=== PATIENT | female | born 1960 | race Caucasian/White ===

== ENCOUNTER → 2020-01-31 15:46 | Outpatient (CLI) | payer OTHER, SELFPAY ==
--- NOTE | ~2020-01-31 | MM_ITS ---
EXAMINATION: MM screening jb BI w samy HISTORY: Screening TECHNIQUE: Craniocaudal and mediolateral oblique 3-D tomosynthesis images were obtained and synthetic 2-D images were generated. CAD analysis was submitted and interpreted. COMPARISON: Comparison to multiple prior studies sequentially, with oldest reviewed study dated 04/05. BREAST PARENCHYMAL COMPOSITION: There are scattered areas of fibroglandular density. FINDINGS: There is no evidence of suspicious mass, calcification, or architectural distortion to sugg est malignancy in either breast. There has been no suspicious interval change. IMPRESSION: 1. No mammographic evidence of malignancy. 2. Recommend routine screening mammography in one year. BI-RADS Category 1: Negative Reviewed, dictated and finalized at location A. ONAL CLOTHING LAUNDRY AIDE
== END ==
PROVIDERS: Visit Provider Obstetrics & Gynecology
DX: Z12.31 Encounter for screening mammogram for malignant neoplasm of breast (principal)
CPT/HCPCS: 77063; 77067

== ENCOUNTER 2020-11-18 16:30 | Emergency (ER) | payer OTHER, SELFPAY ==
[2020-11-18 16:46] VITALS: BP 123/71; PULSE 66; RESP 16; TEMP 36.7; O2SAT 97
--- NOTE | 2020-11-18 17:17 | ED.SKABFB ---
HPI - Skin/Abscess/Foreign Bdy General Chief complaint: Wound/Laceration Stated complaint: Laceration on toe Time Seen by Provider: 11/18/20 17:17 Source: patient Mode of arrival: ambulatory Limitations: no limitations History of Present Illness HPI narrative: Liz Huff is a 60 yo female with PMH of high cholesterol comes with a 2 cm lac to top of L great toe. Happened with a blue for vase that dropped and cut her toe, has good movement and color Related Data Home Medications Medication Instructions Recorded Confirmed atorvastatin 11/18/20 Allergies Allergy/AdvReac Type Severity Reaction Status Date / Time chlorzoxazone Allergy Unknown Other Verified 11/18/20 16:57 Review of Systems Review of Systems: CONSTITUTIONAL: Denies fever, chills, sweats. EYES: Denies visual changes, redness, discharge. ENT: Denies rhinorrhea, congestion, sore throat, otalgia. CARDIOVASCULAR: Denies chest pain, palpitations, edema. RESPIRATORY: Denies dyspnea, wheezing, cough GASTROINTESTINAL: Denies abdominal pain, nausea, vomiting, diarrhea. GENITOURINARY: Denies dysuria, hematuria, abnormal discharge SKIN: Denies rash or itching. Cut across the left great toe about 2 cm in length NEUROLOGIC: Denies numbness, or focal weakness. PSYCHIATRIC: Denies anxiety or depression. [facility] Past Medical History Medical History (Updated 11/18/20 @ 17:53 by Felicitas Head CNP) High cholesterol Family History Family History Mother Cerebrovascular accident Other Diabetes mellitus Hypertension Social History Social History Smoking status: Never smoker Alcohol intake: current Comments At time of signature, I agree with nursing past medical, surgical, social and family history. There is no relevant family history pertinent to the presenting complaint. Exam Narrative: GENERAL: This is a well-nourished, well-developed patient, in mild distress. HEAD: normocephalic, atraumatic. EYES: Sclera clear/white. Vision is grossly intact. EARS: External ears normal, auditory canals clear and without drainage, TMs normal without perforation. Hearing grossly intact. NOSE: External nose normal without nasal discharge, nares without redness, no rhinorrhea. THROAT: Mucous membranes moist, posterior pharynx NECK: Neck supple, non-tender CARDIOVASCULAR: Regular rate and rhythm without murmurs, gallops, or rubs. RESPIRATORY: Clear to auscultation. Breath sounds equal bilaterally. No wheezes, rales, or rhonchi. GASTROINTESTINAL: Abdomen soft, non-tender, SKIN: warm, 2 cm superficial lack to left great toe NEURO: awake, alert, and oriented to person, place and time. There were no obvious focal neurologic abnormalities. Steady gait EXTREMITIES: Normal range of motion. BACK: Nontender without deformity Course Vital Signs Vital signs: Vital Signs Temperature 98.1 F 11/18/20 16:46 Pulse Rate 66 11/18/20 16:46 Respiratory Rate 16 11/18/20 16:46 Blood Pressure 123/71 11/18/20 16:46 Pulse Oximetry 97 11/18/20 16:46 Temperature 98.1 F 11/18/20 16:46 Pulse Rate 66 11/18/20 16:46 Respiratory Rate 16 11/18/20 16:46 Blood Pressure 123/71 11/18/20 16:46 Pulse Oximetry 97 11/18/20 16:46 Procedures Laceration Laceration 1: Date: 11/18/20 Time: 17:40 Site: lower extremity Side (If applicable): left Size (cm): 2 Description: linear Depth: simple, single layer Local Anesthetic: lidocaine 1% Amount of anesthesia used (mL): 3 ====== Skin Level ====== Skin layer closed with: vicryl Size (cm): 4-0 Number of sutures: 4 ====== Subcutaneous Layer ====== ====== Muscle Layer ====== ====== Tendon Layer ====== Dressing: Telfa dressing applied with gauze wrap-tolerated well MDM - Skin/Abscess/For
[2020-11-18] MEDS: TETANUS,DIPHTHERIA,AC PERTUSSIS ADULT (0.5 ML) BOOSTRIX IM (18:06)
[2020-11-18] MEDS: LIDOCAINE HCL 1% LOCAL INJ 20 ML VIAL 5 ML INFILTRATE (18:06)
== END 2020-11-18 17:37 | disposition home or self-care (01) ==
PROVIDERS: Emergency Provider Nurse Practitioner
DX: S91.112A Laceration without foreign body of left great toe without damage to nail, initial encounter (principal); W25.XXXA Contact with sharp glass, initial encounter; Z23 Encounter for immunization; E78.00 Pure hypercholesterolemia, unspecified
CPT/HCPCS: 12001; 90471; 90715; 99212; G0463

== ENCOUNTER → 2021-05-07 15:44 | Outpatient (CLI) | payer OTHER, SELFPAY ==
--- NOTE | ~2021-05-07 | MM_ITS ---
EXAMINATION: MM screening [facility] BI w samy HISTORY: Screening mammogram TECHNIQUE: Craniocaudal and mediolateral oblique 3-D tomosynthesis images were obtained and synthetic 2-D images were generated. CAD analysis was submitted and interpreted. COMPARISON: 01/31/2020, 05/13/2018, 04/23/2017 BREAST PARENCHYMAL COMPOSITION: There are scattered areas of fibroglandular density. FINDINGS: There is a chronic asymmetry in the subareolar right breast. There is no suspicious mass, c alcification, or architectural distortion to suggest malignancy in either breast. There has been no s uspicious interval change. IMPRESSION: 1. No mammographic evidence of malignancy. 2. Recommend routine screening mammography in one year. BI-RADS Category 2: Benign finding(s). Reviewed, dictated and finalized at location A.
== END ==
PROVIDERS: Visit Provider Obstetrics & Gynecology
DX: Z12.31 Encounter for screening mammogram for malignant neoplasm of breast (principal)
CPT/HCPCS: 77063; 77067

== ENCOUNTER 2021-09-09 09:43 | Emergency (ER) | payer OTHER, SELFPAY ==
[2021-09-09] VITALS (10 sets, daily range): BP systolic 110–130; BP diastolic 63–73; PULSE 59–68; RESP 15–18; TEMP 36.4; O2SAT 92–97
--- NOTE | ~2021-09-09 | US_ITS ---
US abdomen limited INDICATION: Abdomen pain. PROCEDURE: Realtime right upper abdominal ultrasound. COMPARISON: No prior studies for comparison. FINDINGS: The pancreas is obscured by bowel content. There is a small 2 mm echogenic mass in the walter er, most likely benign hemangioma in the absence of known malignancy. There is normal directional fl ow in the portal vein. There are gallstones and gallbladder sludge. There is gallbladder wall thickening. Common bile duct measures 5 mm. No sonographic Seay's sign. IMPRESSION: 1: Cholelithiasis with gallbladder sludge and gallbladder wall thickening. Consider cholecystitis in the appropriate clinical setting. 2: Small echogenic mass of the liver measuring 2 mm, likely benign hemangioma in the absence of known malignancy. Reviewed, dictated and finalized at location A. IMPRESSION: 1: Cholelithiasis with gallbladder sludge and gallbladder wall thickening. Cons ider cholecystitis in the appropriate clinical setting. 2: Small echogenic mass of the liver measuring 2 mm, likely benign hemangioma i n the absence of known malignancy.
--- NOTE | ~2021-09-09 | XR_ITS ---
EXAMINATION: XR chest 2V DATE: 09/09/2021 11:03 INDICATION: Chest pain. Epigastric abdominal pain. TECHNIQUE: Frontal and lateral views of the chest were obtained. COMPARISON: None. FINDINGS: The chest demonstrates clear lungs without pneumonia, pleural effusion, or pneumothorax. Th e heart size is normal. There are changes of anterior fusion procedure in cervical spine. There are g allstones in the gallbladder. IMPRESSION: 1. Cholelithiasis. Reviewed, dictated and finalized at location A. IMPRESSION: 1. Cholelithiasis.
--- NOTE | 2021-09-09 09:55 | ECG_ITS ---
Measurements Intervals [place] Rate: 65 P: 39 MD: 132 QRS: -15 QRSD: 83 T: 11 QT: 410 QTc: 427 Interpretive Statements SINUS RHYTHM VOLTAGE CRITERIA FOR LVH, CONSIDER NORMAL VARIANT Electronically Signed On 09-09-2021 11:45:27 CDT by Rafael Mckee M.D.
[2021-09-09 10:06] LABS: Basophils Absolute Auto 0.1 K/mm3 (0.0-0.1); Eosinophils Absolute Auto 0.5 K/mm3 (0-0.3); Eosinophils Percent Auto 8.6 % (0-4.4); Hematocrit 44.8 % (37.0-47.0); Hemoglobin 13.8 g/dL (12.0-15.0); Immature Granulocyte Absolute 0.01 K/mm3 (0.00-0.031); Immature Granulocyte Percent A 0.2 % (0-0.5); Lymphocytes Absolute Auto 1.92 K/mm3 (0.9-3.2); Lymphocytes Percent Auto 32.4 % (18.3-44.2); Mean Corpuscular HGB Conc 30.8 g/dl (32-36); Mean Corpuscular Hemoglobin 28.4 pg (26-34); Mean Corpuscular Volume 92.2 fl (80-100); Mean Platelet Volume 10.8 fl (7.4-10.4); Monocytes Absolute Auto 0.6 K/mm3 (0.1-0.6); Monocytes Percent Auto 9.3 % (2.6-8.5); Neutrophils Absolute Auto 2.9 K/mm3 (1.3-6.7); Neutrophils Percent Auto 48.5 % (45.5-73.1); Platelet Count Result 174 k/mm3 (150-375); Red Blood Count 4.86 M/mm3 (4.2-5.4); Red Cell Distribution Width 13.9 % (11.5-14.5); White Blood Count 5.9 K/mm3 (4.5-10.0)
[2021-09-09 10:28] LABS: Alanine Aminotransferase 38 U/L (6-35); Albumin Level 4.8 g/dL (3.5-5.1); Alkaline Phosphatase 57 U/L (38-126); Anion Gap 10 mmol/L (8-16); Aspartate Amino Transferase 40 U/L (14-36); Bilirubin,Total 0.6 mg/dL (0.2-1.3); Blood Urea Nitrogen 10 mg/dL (7-17); Calcium 8.7 mg/dL (8.4-10.2); Carbon Dioxide 25 mmol/L (22-30); Chloride 107 mmol/L (98-107); Estimated CRCL calculation 58 ml/min; Estimated Glomerular Filt Rate > 60; Glucose 126 mg/dL (65-110); Lipase 154 U/L (23-300); Sodium 142 mmol/L (137-145)
[2021-09-09 10:29] LABS: Prothrombin Time 12.4 Seconds (11.1-14.7)
[2021-09-09 10:30] LABS: Partial Thromboplastin Time 24.1 SECONDS (22.3-36.8)
[2021-09-09 10:38] LABS: Troponin I < 0.012 ng/mL (0.000-0.034)
--- NOTE | 2021-09-09 10:53 | ED.BACK ---
HPI - Back Pain/Injury General Chief Complaint: Back Pain/Injury Stated Complaint: upper back pain, radiated to front of abdomen Time Seen by Provider: 09/09/21 10:38 Source: patient Mode of arrival: ambulatory Limitations: no limitations History of Present Illness HPI Narrative: This is a 61-year-old female that presents to the emergency department for an episode of pain that happened yesterday evening. Reports he had just gotten back from eating dinner. She had a sudden onset wave of feeling unwell. Reports she started having pain in her back that then radiated into the front of her upper abdomen/lower chest. Associated with nausea. She took a dose of aspirin. The pain subsided within about 20 minutes. She called her primary today who prompted her to be seen in the ER to rule out anything cardiac. Denies any current symptoms. Denies fever, chest pain, shortness of breath, or lower extremity edema. Related Data Home Medications Medication Instructions Recorded Confirmed atorvastatin 11/18/20 atorvastatin 40 mg tablet mg 09/09/21 omeprazole 40 mg capsule,delayed mg 09/09/21 release risedronate 150 mg tablet mg PO 09/09/21 Allergies Allergy/AdvReac Type Severity Reaction Status Date / Time chlorzoxazone Allergy Unknown Other Verified 09/09/21 10:00 Review of Systems Review of Systems: CONSTITUTIONAL: Denies fever CARDIOVASCULAR: Reports chest pain. Denies edema. RESPIRATORY: Denies dyspnea. GASTROINTESTINAL: Reports abdominal pain, nausea. Denies vomiting All systems reviewed & are unremarkable except as noted in HPI and below PMFSH Past Medical History Medical History (Updated 09/09/21 @ 12:27 by Adelita Juan PA-C) High cholesterol History of gastroesophageal reflux (GERD) Family History Family History Mother Cerebrovascular accident Other Diabetes mellitus Hypertension Social History Social History Smoking status: Never smoker Alcohol intake: current Exam Narrative: GENERAL: Well-appearing, well-nourished, and in no acute distress. HEAD: Normocephalic, atraumatic. EYES: EOMI. CHEST: Clear to auscultation. No respiratory distress. No wheezes rales or rhonchi HEART: Regular rate and rhythm. No murmur heard. Normal peripheral pulses. ABDOMEN: Soft, nontender, nondistended, normal active bowel sounds. EXTREMITIES: Normal range of motion. No edema. SKIN: Warm, dry, no rash. NEURO: No focal deficits. Alert and oriented x3. PSYCH: Normal mood and affect Course Vital Signs Vital signs: Vital Signs Temperature 97.6 F 09/09/21 09:48 Pulse Rate 68 09/09/21 09:48 Respiratory Rate 18 09/09/21 09:48 Blood Pressure 130/63 09/09/21 09:48 Pulse Oximetry 96 09/09/21 09:48 Oxygen Delivery Room Air 09/09/21 09:48 Temperature 97.6 F 09/09/21 09:48 Pulse Rate 66 09/09/21 10:45 Respiratory Rate 17 09/09/21 10:45 Blood Pressure 113/67 09/09/21 10:31 Pulse Oximetry 94 09/09/21 10:45 Oxygen Delivery Room Air 09/09/21 09:48 MDM - Back Pain/Injury MDM Narrative Medical decision making narrative: Patient presents to the emergency department for an episode of back pain and upper abdominal pain yesterday after eating a fatty meal. She is not having any pain today. Her vitals are stable. She is afebrile and nontoxic-appearing. CBC without concerning findings. Metabolic panel with mild transaminitis. Lipase is negative. EKG without concerning ST changes and baseline troponin is negative. Chest x-ray shows cholelithiasis. Right upper quadrant ultrasound shows cholelithiasis with gallbladder sludge and gallbladder wall thickening. Also shows a small echogenic mass of the liver measuring 2 mm, likely a benign hemangioma. Spoke with Dr. Castro about patient and work-up. Patient is to remain on a low-fat diet and follow-up in clinic. Trey
== END 2021-09-09 12:47 | disposition home or self-care (01) ==
PROVIDERS: Emergency Provider Emergency Medicine
DX: K80.20 Calculus of gallbladder without cholecystitis without obstruction (principal); E78.00 Pure hypercholesterolemia, unspecified; K21.9 Gastro-esophageal reflux disease without esophagitis
CPT/HCPCS: 36415; 71046; 76705; 80053; 83690; 84484; 85025; 85610; 85730; 93005; 99284

== ENCOUNTER 2021-09-19 12:26 | Outpatient (CLI) | payer OTHER, SELFPAY ==
[2021-09-19 13:16] LABS: Amylase 53 U/L (30-110)
== END 2021-09-19 12:27 | disposition home or self-care (01) ==
LOC: ANHSURGERY 12:36
PROVIDERS: Visit Provider Surgery
DX: K80.20 Calculus of gallbladder without cholecystitis without obstruction (principal); Z01.818 Encounter for other preprocedural examination
CPT/HCPCS: 36415; 82150; 86850; 86900; 86901

== ENCOUNTER 2021-09-22 01:37 | Day surgery (SDC) | payer OTHER, SELFPAY ==
[2021-09-18 14:19] VITALS: BMI 26.2
--- NOTE | 2021-09-18 14:41 | PC.NURSE ---
Report to the Outpatient Waiting Room, entrance under the green pavilion located off [facility], at 1130 on 09-22-21. OR Time: 1330. - You and your visitor will be asked to self-screen and do not enter if you have any COVID symptoms. - Only one visitor and NO children visitors are allowed at this time. - The patient visitor is requested to leave or wait in car when not with patient due to restrictions. - A mask is required within the hospital. Patients may have clear liquids (water, carbonated beverages, clear teas, apple juice) until 3 hours prior to surgery with a maximum of 20 ounces. 1030 - No food from midnight until time of surgery - Infants may have breast milk until 4 hours before surgery, formula 6 hours prior to surgery. - Children will be allowed to drink immediately following surgery. If applicable, please bring a bottle or sippy cup to assist with drinking. Juice, water, soda, and popsicles are readily available. For infants on formula, please bring formula the day of surgery. Pacifiers are allowed. Take the following medications with a SIP of water the morning of surgery: None Medications to discontinue per physician: vitamins and supplements Date to take last dose: 09-19-21 Please no make-up, nail salvadorean, hairspray, perfume, deodorant, or body powder the day of surgery. No jewelry (including any body piercings) or valuables the day of surgery, leave them at home. Please take a shower or bath the night before, or the morning of, surgery with an antibacterial soap. Hibiclens Wear comfortable, loose fitting clothing. Children are encouraged to wear pajamas. - Jewelry must be removed prior to entering the operating room. Rings and piercings that are not removed may be cut off. - The hospital will not accept responsibility for valuables. - Please leave all valuables, including medications, at home the day of surgery. If you are going home after surgery, a licensed racing car driver must drive you home. - NO public transportation without another adult. - We recommend that an adult stay with you for 24 hours following discharge. - We also recommend that you do not drive, make important decision, drink alcoholic beverages, or take any drugs that were not prescribed by your health care provider for at least 24 hours after your discharge time. For Pediatric surgeries, we recommend two adults accompany the child home (only one inside the building at this time). Follow any additional instructions given to you from your surgeon. If you or anyone in your household have experienced Covid symptoms in the past week, please notify your surgeon or the nurse liaison at the phone number below for possible testing. Telephone instructions given to Liz Huff and asked if any additional questions and then verbalized understanding. Patient advised to call surgeon office or pre surgery nurse liaison [phone] if any additional questions.
[2021-09-22] VITALS (9 sets, daily range): BP systolic 110–151; BP diastolic 55–81; PULSE 61–114; RESP 10–18; TEMP 36–36.1; O2SAT 93–100
[2021-09-22] MEDS: ACETAMINOPHEN 500 MG TABLET 1000 MG PO (12:09)
[2021-09-22] MEDS: KETOROLAC 15 MG/ML VIAL (*BKC) IV PUSH (12:10)
[2021-09-22] MEDS: LACTATED RINGERS 1,000 ML 30 ML IV CONT ×2 (12:10→14:35)
--- NOTE | 2021-09-22 12:33 | P.PNAN_ITS ---
Anes - Initial Pre Proc Eval Procedure: Operation Date: 09/22/21 13:30 Proposed Procedures p Laparoscopic Cholecystectomy Possible Open - Boogie Weiss DO Date/Time: 09/22/21 12:33 Surgeon: Boogie Weiss DO Pre Op Diagnosis: symptomatic cholelithiasis Patient Data Age: 61 Gender: F Height: 1.52 m Weight: 60.65 kg Last Vital Signs Temp 36.0 C L 09/22/21 11:39 Pulse 63 09/22/21 11:39 Resp 18 09/22/21 11:39 BP 123/61 09/22/21 11:39 Pulse Ox 99 09/22/21 11:39 O2 Del Method Room Air 09/22/21 11:39 Allergies Allergy/AdvReac Type Severity Reaction Status Date / Time chlorzoxazone Allergy Intermediate Swelling Verified 09/22/21 11:46 Home Medications Medication Instructions Recorded Confirmed Type atorvastatin 40 mg tablet 40 mg PO HS 09/09/21 09/22/21 History omeprazole 40 mg capsule,delayed 40 mg PO DAILY 09/09/21 09/22/21 History release risedronate 150 mg tablet 150 mg PO MONTHLY 09/09/21 09/22/21 History Patient hx anesthesia problems: none Family hx anesthesia problems: none Results Review: All pre-operative results and documents have been reviewed as part of the pre-operative evaluation. [facility] Past Medical History Medical History High cholesterol History of gastroesophageal reflux (GERD) Surgical History Surgical History (Updated 09/22/21 @ 12:34 by Bob Whitney MD) H/O cervical spine surgery History of section History of foot surgery Family History Family History Mother Cerebrovascular accident Other Diabetes mellitus Hypertension Social History Social History Smoking status: Never smoker Second hand tobacco smoke exposure: No Alcohol intake: current Drinks per week: 6 Alcohol use details: beer/wine Substance use: never Substance use type: does not use Living arrangements: with family Spiritual care concerns: No Anes - Eval Final PreProcedure Day of Procedure 09/22/21 12:33 Patient weight: overweight Heart: regular rate and rhythm Lungs: clear to auscultation Airway: Mallampati scale class II and special considerations poor extension Neurological: alert and oriented Last oral intake: >/= 8 hours ASA classification: II Emergent: no Anesthetic plan: proceed Anesthesia type and monitoring: general ETT and standard monitoring Results Review: All pre-operative results and documents have been reviewed as part of the pre- operative evaluation. Informed Consent: The patient's anesthetic plan and its attendant risks and benefits were discussed with the patient/family/POA. Questions were solicited and answers prov ided to the satisfaction of the patient/family/POA.
--- NOTE | 2021-09-22 13:00 | WPDHPUPDATE1 ---
History and Physical Update Update Date/Time: 09/22/21 13:00 History and Physical has been reviewed, including an updated exam of the patient. There are NO changes in the patient's condition. Risks, benefits, and alternatives have been discussed and questions answered. Patient agrees to proceed with procedure.
[2021-09-22] MEDS: ceFAZolin 2 GM/D5W 50 ML 2 GM/50 ML BAG IVPB (13:20)
[2021-09-22] MEDS: BUPIVACAINE/EPINEPHRINE 0.25% 50 ML VIAL 30 ML INFILTRATE (13:43)
--- NOTE | 2021-09-22 14:31 | W.PM.PROC2 ---
Procedure Note - Detailed Date of Procedure 09/22/21 Pre-op Diagnosis symptomatic cholelithiasis Post-op Diagnosis Same Procedure Performed Laparoscopic Cholecystectomy Surgeon Boogie Weiss, DO Anesthesia General and Local (0.5% bupivacaine) Indications This is a 61-year-old woman who presented with recent findings of cholelithiasis. She had an acute episode upper abdominal pain about 2 weeks ago and went to the emergency department. She was noted to have evidence of cholelithiasis on ultrasound. Her white blood count was normal. She had never had any symptoms like this in the past. Discussions were made with the patient about treatment options and decision was made to proceed with laparoscopic cholecystectomy, possible open. Findings Laparoscopic cholecystectomy was performed. The gallbladder had some chronic wall thickening, but there is no evidence of pericholecystic adhesions. The cystic duct appeared normal in size. She had a couple medium-sized stones within the gallbladder. No other intra-abdominal abnormalities were noted. The gallbladder was removed and sent to the lab for pathology. Description of Procedure Procedure as well as risks, benefits, and alternatives were discussed with patient. Written consent was obtained and placed in chart prior to procedure. The patient was brought back to surgical suite. Patient was placed in supine position on operating table. Time-out was done to confirm patient and procedure. Patient was then intubated by the anesthesia department. Abdomen was prepped and draped in sterile fashion using chlorhexidine prep. 0.5% bupivacaine with epinephrine was infiltrated at each site of incision. A 5 millimeter incision was made near the umbilicus, and a 5 millimeter Optiview trocar was advanced through the abdominal layers under direct visualization. Once inside the abdominal cavity, carbon dioxide was insufflated to create a pneumoperitoneum. The camera was inserted and the abdomen was inspected. No immediate abnormalities were identified. The patient was placed in reverse Trendelenburg position and rotated slightly to the left. An 11 millimeter incision was made in the subxiphoid region, and an 11 millimeter trocar was inserted under direct visualization. Two 5 millimeter incisions were made in the right upper quadrant, and two 5 millimeter trocars were inserted under direct visualization. The gallbladder was identified and grasped at the fundus and retracted superiorly. It was then grasped at the infundibulum retracted laterally. Careful dissection around the neck of the gallbladder was performed using blunt dissection with a [place] grasper and hook electrocautery. The cystic duct was identified, and a window was created behind it. The cystic artery was also identified and a window was created behind it. The critical view of safety was identified, visualizing the cystic duct running directly into the neck of the gallbladder, and the cystic artery running directly into the wall of the gallbladder. A 5 millimeter clip risk mgr was then used to place 2 clips proximally and 1 clip distally on both the cystic duct and cystic artery. They were then both transected using endoscopic scissors. Once safely away from the gracie hepatitis, the gallbladder was dissected free from the liver bed using hook electrocautery. Hemostasis was achieved along the way. The gallbladder was removed completely and then removed through the subxiphoid port. The liver bed was then inspected. Hemostasis appeared adequate, and our clips appeared secure. The area was gently irrigated with sterile saline. No other abnormalities were seen. The patient was flattened out in bed, and 1 final inspection was made around the abdominal cavity. The subxiphoid port was removed, and a Silvano Jose Juan cone was used to approximate the fascia with an 0-Vicryl simple interrupted suture. The remaining ports were then removed under direct visualiza
[2021-09-22] MEDS: diphenhydrAMINE HCl INJ 50 MG/ML VIAL 12.5 MG IV PUSH (14:54)
[2021-09-22] MEDS: SCOPOLAMINE 1.5 MG PATCH TRANSDERM (14:54)
[2021-09-22] MEDS: fentaNYL CITRATE INJ (*CRX) 100 MCG/2 ML VIAL 25 MCG IV PUSH (15:16)
[2021-09-22] MEDS: oxyCODONE HCL (*CRX) 5 MG TAB IR PO (16:05)
[2021-09-22] MEDS: diphenhydrAMINE HCl CAP 25 MG CAPSULE PO (16:37)
== END 2021-09-22 16:29 | disposition home or self-care (01) ==
PROVIDERS: Visit Provider Surgery
PROC: 0FT44ZZ Resection of Gallbladder, Percutaneous Endoscopic Approach (ICD-10-PCS; CPT 47562; principal; 2021-09-22 13:30)
DX: K80.10 Calculus of gallbladder with chronic cholecystitis without obstruction (principal); K82.8 Other specified diseases of gallbladder; R10.13 Epigastric pain; R19.7 Diarrhea, unspecified; E78.00 Pure hypercholesterolemia, unspecified; K21.9 Gastro-esophageal reflux disease without esophagitis; R10.11 Right upper quadrant pain
CPT/HCPCS: 47562; 88304; A9270; J0330; J0690; J1100; J1200; J1885; J2250; J2405; J2704; J2710; J3010; J7120

== ENCOUNTER → 2022-05-20 15:47 | Outpatient (CLI) | payer OTHER, SELFPAY ==
--- NOTE | ~2022-05-20 | MM_ITS ---
EXAMINATION: MM screening jb BI w samy HISTORY: Screening TECHNIQUE: Craniocaudal and mediolateral oblique 3-D tomosynthesis images were obtained and synthetic 2-D images were generated. CAD analysis was submitted and interpreted. COMPARISON: Comparison to multiple prior studies sequentially, with oldest reviewed study dated 02/2015. BREAST PARENCHYMAL COMPOSITION: There are scattered areas of fibroglandular density. FINDINGS: There is no evidence of suspicious mass, calcification, or architectural distortion to sugg est malignancy in either breast. There has been no suspicious interval change. IMPRESSION: 1. No mammographic evidence of malignancy. 2. Recommend routine screening mammography in one year. BI-RADS Category 1: Negative Reviewed, dictated and finalized at location L.
== END ==
PROVIDERS: PCP Internal Medicine; Visit Provider Obstetrics & Gynecology
DX: Z12.31 Encounter for screening mammogram for malignant neoplasm of breast (principal)
CPT/HCPCS: 77063; 77067

== ENCOUNTER 2023-03-21 20:11 | Emergency (ER) | payer OTHER, SELFPAY ==
--- NOTE | ~2023-03-21 | XR_ITS ---
Left foot Technique: AP, oblique, and lateral views were obtained. Clinical History: Injury Findings: There is a minimally displaced fracture of the medial aspect of the navicular. Possible acu te avulsion fracture from the calcaneus related to the extensor digitorum brevis origin. Fracture the medial malleolus is partially imaged. Joint spaces are preserved without erosive or degenerative heather nge. Soft tissues are unremarkable. Impression: Minimally displaced fracture the medial aspect of the navicular. Possible acute avulsion fracture of the calcaneus related to the extensor digitorum brevis origin. Medial malleolus fracture, partially imaged. Patient recently reported ankle series for further detai ls. Reviewed, dictated and finalized at location M. [employer] Impression: Minimally displaced fracture the medial aspect of the navicular. Possible acute avulsion fracture of the calcaneus related to the extensor digit orum brevis origin. Medial malleolus fracture, partially imaged. Patient recently reported ankle se morris for further details.
--- NOTE | ~2023-03-21 | XR_ITS ---
Left ankle Technique: AP, oblique, and lateral views were obtained. Clinical History: Injury Findings: There is a minimally displaced acute fracture the base the medial malleolus. No other fract ure or dislocation seen.. Ankle mortise and other visualized joint spaces are preserved. Soft tissue s are otherwise unremarkable. Impression: Acute, minimally displaced fracture through the base of the medial malleolus. Reviewed, dictated and finalized at location M. [facility] [employer] Impression: Acute, minimally displaced fracture through the base of the medial malleolus.
[2023-03-21 20:24] VITALS: BP 118/63; PULSE 79; RESP 18; TEMP 36.6; O2SAT 95
--- NOTE | 2023-03-21 20:46 | ED.GENADULT ---
HPI - General Adult General Chief complaint: Extremity Injury, Lower Stated complaint: left foot injury after a glf Time Seen by Provider: 03/21/23 20:36 Source: patient Mode of arrival: ambulatory Limitations: no limitations History of Present Illness HPI narrative: This is a 63 year old female who presents to the ED with chief complaint of a fall that occurred just prior to arrival. Reports pain to the left ankle and left foot. patient was walking down the steps of her friend's house which she missed a step and felt her ankle twisted. She reports falling after this but did not suffer any further injury. She states she was unable to walk after the injury. Denies numbness, weakness. Related Data Home Medications Medication Instructions Recorded Confirmed atorvastatin 40 mg tablet 40 mg PO HS 09/09/21 10/03/21 omeprazole 40 mg capsule,delayed 40 mg PO DAILY 09/09/21 10/03/21 release risedronate 150 mg tablet 150 mg PO MONTHLY 09/09/21 10/03/21 Allergies Allergy/AdvReac Type Severity Reaction Status Date / Time chlorzoxazone Allergy Intermediate Swelling Verified 03/21/23 21:00 Review of Systems Review of Systems: All systems as dictated in [facility] Past Medical History Medical History High cholesterol History of gastroesophageal reflux (GERD) Surgical History Surgical History H/O cervical spine surgery History of section History of foot surgery Hx laparoscopic cholecystectomy 09/22/21 Family History Family History Mother Cerebrovascular accident Other Diabetes mellitus Hypertension Social History Social History Smoking status: Never smoker Second hand tobacco smoke exposure: No Alcohol intake: current Drinks per week: 6 Alcohol use details: beer/wine Substance use: never Substance use type: does not use Living arrangements: with family Spiritual care concerns: No Exam Narrative: GENERAL: Well-appearing, well-nourished, and in no acute distress. HEAD: Normocephalic, atraumatic. EYES: PERRLA and EOMI. ENT: Nares clear, no rhinorrhea or epistaxis. Mucous membranes moist. Oropharynx without tonsillar hypertrophy exudate or other lesions. NECK: Supple. No adenopathy or masses. CHEST: No respiratory distress. Clear to auscultation. No wheezes rales or rhonchi. HEART: Regular rate and rhythm. No murmur heard. Normal peripheral pulses. ABDOMEN: Soft, nontender, nondistended, normal active bowel sounds. MSK: Tenderness to the left ankle medially and left foot laterally. No bruising or deformity. Neurovascularly intact distally. Compartments soft. SKIN: Warm, dry, no rash. NEURO: Alert and oriented x3. No focal deficits. PSYCH: Normal mood and affect. Course Vital Signs Vital signs: Vital Signs Temperature 97.9 F 03/21/23 20:24 Pulse Rate 79 03/21/23 20:24 Respiratory Rate 18 03/21/23 20:24 Blood Pressure 118/63 03/21/23 20:24 Pulse Oximetry 95 03/21/23 20:24 Oxygen Delivery Room Air 03/21/23 20:24 Temperature 97.9 F 03/21/23 20:24 Pulse Rate 79 03/21/23 20:24 Respiratory Rate 18 03/21/23 20:24 Blood Pressure 118/63 03/21/23 20:24 Pulse Oximetry 95 03/21/23 20:24 Oxygen Delivery Room Air 03/21/23 20:24 Procedures Orthopedic Splinting/Casting Injury #1: Splinting/Casting Date: 03/22/23 Splinting/Casting Time: 21:00 Side: left Lower Extremity Injury Location: ankle and foot Lower Extremity Immobilizer: posterior splint Splint: customized in ED OCL: short leg Pre-Procedure Neuro Vascular Exam: normal Post-Procedure Neuro Vascular Exam: normal Other Orthopedic Equipment: crutches Medical Decision Making
[2023-03-21] MEDS: HYDROcodone/acetaminophen (*CRX) 5-325 MG TABLET 1 TAB PO (21:20)
== END 2023-03-21 22:20 | disposition home or self-care (01) ==
PROVIDERS: Emergency Provider Physician Assistant
DX: S82.52XA Displaced fracture of medial malleolus of left tibia, initial encounter for closed fracture (principal); S92.252A Displaced fracture of navicular [scaphoid] of left foot, initial encounter for closed fracture; E78.00 Pure hypercholesterolemia, unspecified; K21.9 Gastro-esophageal reflux disease without esophagitis; Z90.49 Acquired absence of other specified parts of digestive tract; W10.9XXA Fall (on) (from) unspecified stairs and steps, initial encounter
CPT/HCPCS: 29515; 73610; 73630; 99284; A9270

== ENCOUNTER 2023-06-18 15:58 | Outpatient (CLI) | payer OTHER, SELFPAY ==
--- NOTE | ~2023-06-18 | MM_ITS ---
EXAMINATION: MM screening jb BI w samy HISTORY: Screening mammogram TECHNIQUE: Craniocaudal and mediolateral oblique 3-D tomosynthesis images were obtained and synthetic 2-D images were generated. CAD analysis was submitted and interpreted. COMPARISON: May 20, 2022, May 07, 2021 bilateral screening mammogram examinations BREAST PARENCHYMAL COMPOSITION: There are scattered areas of fibroglandular density. FINDINGS: There is no evidence of suspicious mass, calcification, or architectural distortion to sugg est malignancy in either breast. There has been no suspicious interval change. IMPRESSION: 1. No mammographic evidence of malignancy. 2. Recommend routine screening mammography in one year. BI-RADS Category 1: Negative Reviewed, dictated and finalized at location B.
== END 2023-06-18 15:59 ==
LOC: MICIMG 15:59
PROVIDERS: PCP Obstetrics & Gynecology; Visit Provider Obstetrics & Gynecology
DX: Z12.31 Encounter for screening mammogram for malignant neoplasm of breast (principal)
CPT/HCPCS: 77063; 77067

== ENCOUNTER 2024-08-30 10:49 | Outpatient (CLI) | payer OTHER, SELFPAY ==
--- NOTE | ~2024-08-30 | MM_ITS ---
EXAMINATION: MM screening jb BI w samy HISTORY: Screening TECHNIQUE: Craniocaudal and mediolateral oblique 3-D tomosynthesis images were obtained and synthetic 2-D images were generated. CAD analysis was submitted and interpreted. COMPARISON: Comparison to multiple prior studies sequentially, with oldest reviewed study dated 2018. BREAST PARENCHYMAL COMPOSITION: There are scattered areas of fibroglandular density. FINDINGS: There is no evidence of suspicious mass, calcification, or architectural distortion to sug gest malignancy in either breast. IMPRESSION: 1. No mammographic evidence of malignancy. 2. Recommend routine screening mammography in one year. BI-RADS Category 1: Negative Reviewed, dictated and finalized at location B.
== END 2024-08-30 10:50 | disposition home or self-care (01) ==
LOC: MICIMG 10:49
PROVIDERS: Visit Provider Obstetrics & Gynecology
DX: Z12.31 Encounter for screening mammogram for malignant neoplasm of breast (principal)
CPT/HCPCS: 77063; 77067